=== PATIENT | male | born 1960 ===

== ENCOUNTER 2023-07-06 19:22 | Emergency (ER) | payer OTHER ==
[~2023-07-06] VITALS: Ht 172.7 cm; Wt 104.3 kg
[2023-07-06 20:18] LABS: Hematocrit 38.8 % (37.0-53.0); Hemoglobin 13.1 g/dL (13.5-17.5); Mean Corpuscular HGB 29.4 pg (26.0-34.0); Mean Corpuscular HGB Conc 33.8 g/dL (31.5-36.5); Mean Corpuscular Volume 87 fL (80-100); Mean Platelet Volume 12.8 fL (9.1-12.4); Platelet Count 201 K/mm3 (150-400); RDW Coefficient Variation 13.2 % (11.7-14.2); RDW Standard Deviation 41.9 fL (35.1-46.3); Red Blood Cell Count 4.45 M/mm3 (4.30-5.90)
[2023-07-06 20:19] LABS: White Blood Cell Count 17.05 K/mm3 (4.00-11.30)
[2023-07-06 20:40] LABS: Magnesium, Blood 1.9 mg/dL (1.6-2.4)
[2023-07-06 20:50] LABS: Alanine Aminotransfer (ALT/SGP 27 U/L (12-78); Albumin, Blood 3.6 g/dL (3.4-5.0); Alk Phos 77 U/L (50-136); Anion Gap 6 mmol/L (6-16); Aspartate Aminotrans (AST/SGOT 21 U/L (12-37); Bilirubin, Direct <0.1 mg/dL (0.0-0.3); Bilirubin, Indirect Unable to Calculate mg/dL (0.1-0.7); Bilirubin, Total 0.3 mg/dL (0.1-1.0); Blood Urea Nitrogen 17 mg/dL (8-24); Bun/Creatinine Ratio 21.4 (12.0-20.0); CO2, Blood 27 mmol/L (21-32); Calcium, Blood 8.8 mg/dL (8.5-10.1); Chloride, Blood 110 mmol/L (98-108); Globulin, Blood 3.6 g/dL (2.2-4.0); Glomerular Filtration Rate 100 (60-); Glucose, Blood 158 mg/dL (70-99); Phosphorus, Blood 2.7 mg/dL (2.5-4.9); Potassium, Blood 3.8 mmol/L (3.5-5.5); Sodium, Blood 143 mmol/L (136-145); Total Protein, Blood 7.2 g/dL (6.4-8.2)
[2023-07-06 21:31] LABS: BASOPHILS ABSOLUTE MAN 0.17 K/mm3 (0.00-0.23); BASOPHILS PERCENT MAN 1 % (0-2); EOSINOPHILS PERCENT MAN 0 % (0-6); LYMPHOCYTES ABSOLUTE MAN 0.68 K/mm3 (0.84-5.20); LYMPHOCYTES PERCENT MAN 4 % (21-46); MONOCYTES ABSOLUTE MAN 0.51 K/mm3 (0.16-1.47); MONOCYTES PERCENT MAN 3 % (4-13); NEUTROPHILS ABSOLUTE MAN 15.68 K/mm3 (1.96-9.15); SEG NEUTROPHILS PERCENT MAN 92 % (41-73); TOTAL CELLS COUNTED 100
[2023-07-06 21:45] LABS: D-Dimer, Quantitative 0.77 mg/L FEU (0.00-0.52); Prothrombin Time Results 10.5 Sec (9.7-11.5)
[2023-07-07] MEDS ORDERED: AMOCLA875 PO (06:43)
[2023-07-07] MEDS ORDERED: DOXY100 PO (06:43)
[2023-07-07 07:00] VITALS: BP 143/75
== END 2023-07-07 07:23 | disposition home or self-care (01) ==
LOC: ER 19:22
PROVIDERS: Emergency Medicine
DX: J18.9 Pneumonia, unspecified organism (principal); R09.1 Pleurisy; R11.2 Nausea with vomiting, unspecified; R51.9 Headache, unspecified
CPT/HCPCS: 71046; 71260; 80053; 82248; 83690; 83735; 84100; 84484; 85025; 85379; 85610; 85730; A9270; J2765; J7030; Q9967